=== PATIENT | female | born 1985 | race Caucasian/White ===

== ENCOUNTER 2019-06-19 12:31 | Emergency (ER) | payer MEDICAID ==
[~2019-06-19] VITALS: Ht 157.5 cm; Wt 77.0 kg
[2019-06-19] MEDS ORDERED: LIDOcaine 1% w/EPI 1:200,000 injection 10mL vial IM ONE (13:30)
[2019-06-19] MEDS ORDERED: LIDOcaine 1% W/epiNEPHrine 1:200,000 10ml vial IJ ONE (13:35)
[2019-06-19] MEDS ORDERED: CLIN-90 PO (14:07)
[2019-06-19 14:20] VITALS: BP 120/73
== END 2019-06-19 14:22 | disposition home or self-care (01) ==
LOC: ER 12:32
DX: O91.12 Abscess of breast associated with the puerperium (principal); L02.211 Cutaneous abscess of abdominal wall; L02.212 Cutaneous abscess of back [any part, except buttock and flank]; Z88.1 Allergy status to other antibiotic agents; Z79.2 Long term (current) use of antibiotics
CPT/HCPCS: 10060; 87070; 87077; 87186; 99283; 99285